=== PATIENT | female | born 1975 | race Hispanic/Latino ===

== ENCOUNTER → 2019-05-13 | Outpatient (CLI) | payer OTHER | END | disposition home or self-care (01) | LOC: RAH 15:36 | PROVIDERS: ATTEND Obstetrics & Gynecology | DX: N83.01 Follicular cyst of right ovary (principal); N83.202 Unspecified ovarian cyst, left side; Z90.710 Acquired absence of both cervix and uterus | CPT/HCPCS: 76856 ==

== ENCOUNTER 2019-12-23 07:23 | Emergency (ER) | payer OTHER ==
[2019-12-23] MEDS ORDERED: KETOROLAC TROMETHAMINE 30MG/ML ONE (07:48)
[2019-12-23] MEDS ORDERED: SODIUM CHLORIDE 0.9% 1000ML 1,000 ML IV ONE (07:48)
[2019-12-23] MEDS ORDERED: ONDANSETRON HCL 4 MG/2 ML VIAL ONE (07:48)
[2019-12-23 07:58] LABS: BASOPHILS % (AUTO) 0.4 % (0.0-5.0); LYMPHOCYTES % (AUTO) 23.7 % (21.0-51.0); MEAN CORPUSCULAR HEMOGLOBIN 28.3 pg (27.0-33.0); MEAN CORPUSCULAR VOLUME 85.7 fL (79-99); MONOCYTES % (AUTO) 5.8 % (3.0-13.0); NEUTROPHILS % (AUTO) 68.8 % (40.0-77.0); PLATELET COUNT (AUTO) 266 K/uL (130-400); RED BLOOD CELL COUNT(AUTO) 4.67 MIL/uL (4.00-5.50); WHITE BLOOD COUNT (AUTO) 16.4 K/uL (4.8-10.8)
[2019-12-23 08:06] LABS: APPEARANCE,URINE Clear (CLEAR); BILIRUBIN,URINE Negative (NEGATIVE); COLOR,URINE Yellow (YELLOW); GLUCOSE, URINE (UA) Negative (NEGATIVE); KETONES,URINE Negative (NEGATIVE); LEUKOCYTE ESTERASE ,URINE Negative (NEGATIVE); NITRATE,URINE Negative (NEGATIVE); OCCULT BLOOD,URINE Negative (NEGATIVE); PH,URINE 6.5 (5.0-8.0); PROTEIN,URINE Negative (NEGATIVE); UROBILINOGEN,URINE 0.2 mg/dL (0.2-1.0)
[2019-12-23 08:28] LABS: ALBUMIN 3.9 g/dL (3.5-5.0); BILIRUBIN,DIRECT 0.1 mg/dL (0.0-0.3); BILIRUBIN,TOTAL 0.4 mg/dL (0.2-1.0); CREATININE 0.7 mg/dL (0.5-1.5); POTASSIUM 3.7 mmol/L (3.5-5.1); TOTAL PROTEIN, SERUM 8.5 g/dL (6.0-8.3)
[2019-12-23] MEDS ORDERED: CEFTRIAXONE SODIUM 1 GM ONE (09:14)
== END 2019-12-23 10:07 | disposition home or self-care (01) ==
LOC: EDH 07:23
DX: K57.32 Diverticulitis of large intestine without perforation or abscess without bleeding (principal); Z88.1 Allergy status to other antibiotic agents; Z90.710 Acquired absence of both cervix and uterus
CPT/HCPCS: 36415; 74176; 80048; 80076; 81003; 82550; 83690; 85025; 96361; 96374; 96375; 99284; J0696; J1885; J2405; J7030

== ENCOUNTER 2021-04-21 14:35 | Emergency (ER) | payer OTHER ==
[2021-04-21 15:45] VITALS: BP 121/71
== END 2021-04-21 15:49 | disposition home or self-care (01) ==
LOC: EDH 14:35
DX: U07.1 COVID-19 (principal); J02.9 Acute pharyngitis, unspecified; Z88.1 Allergy status to other antibiotic agents
CPT/HCPCS: 87635; 87804 ×2; 87880; 99283; C9803